=== PATIENT | female | born 1990 | race African-American/Black ===

== ENCOUNTER 2020-10-26 12:29 | Emergency (ER) | payer OTHER ==
[~2020-10-26] VITALS: Ht 149.9 cm; Wt 56.2 kg
[2020-10-26 12:43] LABS: URINE BILIRUBIN NEGATIVE (Negative); URINE BLOOD TRACE (Negative); URINE CLARITY CLEAR; URINE COLOR YELLOW; URINE GLUCOSE-RANDOM* NEGATIVE (Negative); URINE KETONES NEGATIVE (Negative); URINE LEUKOCYTES-REFLEX TRACE (Negative); URINE NITRITE-REFLEX NEGATIVE (Negative); URINE PROTEIN (DIPSTICK) NEGATIVE (Negative); URINE UROBILINOGEN 0.2 E.U./dl (0.2-1.0)
[2020-10-26 12:46] VITALS: BP 114/74
== END 2020-10-26 16:03 | disposition home or self-care (01) ==
LOC: ER 12:29
PROVIDERS: Physician Assistant
DX: N60.02 Solitary cyst of left breast (principal); N63.0 Unspecified lump in unspecified breast; J45.909 Unspecified asthma, uncomplicated

== ENCOUNTER 2021-02-02 12:26 | Emergency (ER) | payer OTHER ==
[~2021-02-02] VITALS: Ht 149.9 cm; Wt 63.5 kg
[2021-02-02 12:54] LABS: ABSOLUTE NEUTROPHILS 4.6 thou/uL (1.4-8.2); EOSINOPHILS 2.3 % (0.0-3.0); HEMATOCRIT 41.8 % (37.0-47.0); HEMOGLOBIN 14.6 gm/dL (12.0-15.0); LYMPHOCYTES 29.2 % (24.0-44.0); MCH 31.8 pg (26.0-34.0); MCHC 34.8 g/dL (28.0-37.0); MCV 91.4 fL (80.0-100.0); MONOCYTES 10.1 % (1.0-8.0); PLATELET COUNT 304 thou/uL (150-400); POLYS 57.4 % (36.0-66.0); RBC 4.58 mil/uL (4.20-5.00); RDW 13.3 % (10.5-14.5)
[2021-02-02 12:57] LABS: ANION GAP 9 mmol/L (7-16); BUN 12 mg/dL (7-18); CALCIUM 9.4 mg/dL (8.5-10.1); CHLORIDE 103 mmol/L (98-107); CO2 29 mmol/L (21-32); CREATININE 0.9 mg/dL (0.6-1.0); GLUCOSE 93 mg/dL (74-106); POTASSIUM 4.3 mmol/L (3.5-5.1); SODIUM 141 mmol/L (136-145)
[2021-02-02 13:08] LABS: ALBUMIN 3.7 g/dL (3.4-5.0); LIPASE 135 U/L (73-393); SGOT 16 U/L (15-37); SGPT 21 U/L (30-65); TOTAL BILIRUBIN 0.4 mg/dL (0.2-1.0); TOTAL PROTEIN 7.5 g/dL (6.4-8.2); TROPONIN-I <0.06 ng/mL (<0.06)
[2021-02-02 13:26] VITALS: BP 137/90
--- NOTE | 2021-02-02 16:05 | EKG ---
[place] [address] [facility] [place] [address] ELECTROCARDIOGRAM REPORT Name: JOLENE CUNHA Room #: EDENILSON Foley#: [id number] Admission: 02/02/21 Attend Phys: Discharge: 02/02/21 Date of : 86 Report #: [id number] [facility] ED Test Date: 2021-02-02 Test Time: 12:31:34 Pat Name: Jolene Cunha Department: Patient ID: [id number]- Room: Gender: F [employer]: SEE : 1990 Requested By: Antonio Phillips Order Number: [id number] MD: Migue Dowd Measurements Intervals [place] Rate: 91 P: 65 NE: 143 QRS: 46 QRSD: 77 T: 33 QT: 352 QTc: 434 Interpretive Statements Sinus rhythm Normal tracing Compared to ECG 10/25/2019 14:59:58 T wave abnormality is no longer present Electronically Signed On 02-02-2021 16:05:29 CDT by Migue Dowd [email or web address] <ELECTRONICALLY SIGNED> By: Migue Dowd MD, [facility] 02/02/21 1605 1231 1231 Migue Dowd MD, FACC /EPI
== END 2021-02-02 13:26 | disposition home or self-care (01) ==
LOC: ER
PROVIDERS: Emergency Medicine
DX: R07.89 Other chest pain (principal); F17.210 Nicotine dependence, cigarettes, uncomplicated

== ENCOUNTER 2021-05-14 15:10 | Emergency (ER) | payer OTHER ==
[~2021-05-14] VITALS: Ht 149.9 cm; Wt 66.2 kg
[2021-05-14 15:34] VITALS: BP 151/88
== END 2021-05-14 16:05 | disposition home or self-care (01) ==
LOC: ER 15:10
DX: N64.4 Mastodynia (principal); F17.210 Nicotine dependence, cigarettes, uncomplicated; Z98.51 Tubal ligation status